=== PATIENT | female | born 1990 | race Two or more races ===

== ENCOUNTER 2016-07-23 23:10 | Emergency (ER) | payer OTHER ==
[2016-07-24 01:21] LABS: SPECIFIC GRAVITY 1.025 (1.001-1.030); URINE BILIRUBIN NEGATIVE (NEGATIVE); URINE BLOOD NEGATIVE (NEGATIVE); URINE GLUCOSE (UA) NEGATIVE (NEGATIVE); URINE LEUKOCYTE ESTERASE NEGATIVE (NEGATIVE); URINE NITRITE NEGATIVE (NEGATIVE); URINE PROTEIN NEGATIVE (NEGATIVE)
[2016-07-24 01:24] LABS: HCG,QUALITATIVE URINE NEGATIVE; URINE APPEARANCE CLEAR; URINE COLOR AMBER; URINE UROBILINOGEN 4 mg/dL (0-1 mg/dl)
[2016-07-24 01:42] LABS: ABSOLUTE NEUTROPHIL COUNT 8.4 K/mm3 (1.8-7.7); BASO % 0.2 % (0.2-1.0); EOS # 0.1 (0.0-0.5); EOS % 0.9 % (0.9-2.9); HEMATOCRIT 38.3 % (37.0-47.0); HEMOGLOBIN 12.7 gm/l (12.0-16.0); IMM NEUT% 0.3 % (0-1); LYMPH # 1.1 (1.0-4.8); LYMPH % 11.2 % (15-45); MEAN CELL VOLUME 88.9 fl (81.0-99.0); MEAN CORPUSCULAR HEMOGLOBIN 29.5 pg (27.0-31.0); MEAN CORPUSCULAR HGB CONC 33.2 g/dl (33.0-37.0); MEAN PLATELET VOLUME 10.6 fl (7.4-10.4); MONO # 0.5 (0.0-0.8); NEUT % 82.4 % (43-75); PLATELET COUNT 259 K/mm3 (130-400); RED CELL DISTRIBUTION WIDTH 11.8 % (11.5-14.5)
[2016-07-24 01:56] LABS: ALB/GLOB RATIO 1.6 (>1.0); ALBUMIN 4.1 gm/dL (3.5-5.7); CALCIUM 9.2 mg/dL (8.6-10.3)
--- NOTE | 2016-07-24 08:38 | US ---
EXAMINATION: Limited gallbladder ultrasound examination was performed. CLINICAL INDICATION: Right upper quadrant pain. COMPARISON: None FINDINGS: Gallbladder: The gallbladder is contracted. And measures 7.4 x 2.3 cm. Cholelithiasis: Extensive cholelithiasis is noted with numerous shadowing calculi. Gallbladder wall thickness: 3.6 millimeters. Pericholecystic fluid: Absent Common bile duct:Not dilated and measures 6 millimeters. Sonographic Cary's sign: None elicited. IMPRESSION: Extensive cholelithiasis with nonspecific gallbladder wall thickening. Findings may reflect subacute or early cholecystitis. There is no evidence of intra or extrahepatic biliary obstruction. Findings were communicated by [facility] to the emergency department at: 2:47 AM 07/24/2016
== END 2016-07-24 03:32 | disposition home or self-care (01) ==
LOC: ED 23:10
DX: K80.20 Calculus of gallbladder without cholecystitis without obstruction (principal)

== ENCOUNTER 2016-09-04 07:30 | Day surgery (SDC) | payer OTHER ==
[~2016-09-04 07:30] MED LIST: CEFAZOLIN SODIUM 2 GRAM PREMIX 100 ML IV ONE; CEFAZOLIN SODIUM 2 GRAM PREMIX 100 ML IV PRN; IV START KIT ONE; LACTATED RINGERS 1,000 ML ONE
[2016-09-04] MEDS ORDERED: BUPIVACAINE 0.5% W/EPI SDV 30 ML VIAL ONE (07:55)
[2016-09-04] MEDS ORDERED: IOPAMIDOL 300 (61%) 30 ML SDV ONE (07:55)
[2016-09-04] MEDS ORDERED: SODIUM CHLORIDE 0.9% 50 ML ONE (07:55)
[2016-09-04] MEDS ORDERED: PROPOFOL 20 ML IV ONE (08:03)
[2016-09-04] MEDS ORDERED: ROCURONIUM BROMIDE 10 MG/ML DOSE IV ONE (08:03)
[2016-09-04] MEDS ORDERED: FENTANYL 100 MCG/2 ML VIAL ONE (08:03)
[2016-09-04] MEDS ORDERED: HYDROMORPHONE HCL 2 MG/ML SYRINGE ONE (08:49)
[2016-09-04] MEDS ORDERED: LACTATED RINGERS 1,000 ML IV SCH (09:00)
[2016-09-04] MEDS ORDERED: MEPERIDINE 25 MG/ML SYRINGE IV PRN (09:00)
[2016-09-04] MEDS ORDERED: NALOXONE HCL 0.4 MG/ML VIAL IV PRN (09:00)
[2016-09-04] MEDS ORDERED: MORPHINE SULFATE 4 MG/ML SYRINGE IV PRN (09:00)
[2016-09-04] MEDS ORDERED: HYDRALAZINE HCL 20 MG/1 ML VIAL IV PRN (09:00)
[2016-09-04] MEDS ORDERED: ATROPINE SULFATE 0.4 MG/1 ML VIAL IV PRN (09:00)
[2016-09-04] MEDS ORDERED: PROMETHAZINE HCL 25 MG/ML VIAL IM PRN ×2 (09:00→15:18)
[2016-09-04] MEDS ORDERED: ONDANSETRON 4 MG/2ML 2 ML VIAL IV PRN ×2 (09:00→10:30)
[2016-09-04] MEDS ORDERED: ONDANSETRON 4 MG/2ML 2 ML VIAL ONE ×2 (09:36→11:08)
[2016-09-04] MEDS ORDERED: KETOROLAC TROMETHAMINE 30 MG/ML 1 ML VIAL ONE (09:36)
[2016-09-04] MEDS ORDERED: FAMOTIDINE 10 MG/ML 2ML VIAL ONE (09:36)
[2016-09-04] MEDS ORDERED: METOCLOPRAMIDE HCL 5 MG/ML 2ML VIAL ONE (09:36)
--- NOTE | 2016-09-04 09:50 | RAD ---
Exam: Intraoperative cholangiogram COMPARISON: Gallbladder ultrasound 07/24/2016 INDICATION: Laparoscopic cholecystectomy. Findings: Fluoroscopy was provided for Dr. Pearl. Radiologist was not present. 30.5 seconds of fluoroscopy time was utilized. 4 static images were submitted for interpretation. These images demonstrate patent common bile duct without intraluminal filling defect to suggest choledocholithiasis. Visualized intrahepatic biliary tree is also normal. Contrast is seen within the duodenum. IMPRESSION: Fluoroscopy was provided for Dr. Pearl for intraoperative cholangiogram. Please see his notes for discussion.
[2016-09-04] MEDS ORDERED: LACTATED RINGERS 1,000 ML ONE ×2 (09:58→14:45)
[2016-09-04] MEDS ORDERED: MORPHINE SULFATE 4 MG/ML SYRINGE ONE (10:09)
--- NOTE | 2016-09-04 10:13 | OP ---
Ann Parsons [id number] DATE: 09/04/2016 PREOPERATIVE DIAGNOSIS: Chronic cholecystitis with cholelithiasis. POSTOPERATIVE DIAGNOSIS: Chronic cholecystitis with cholelithiasis. PROCEDURE: Laparoscopic cholecystectomy with intraoperative cholangiogram. SURGEON: Andrae Pearl M.D. COMBER SETTER: Kylah. ANESTHESIA: Von, general endotracheal. INDICATION: This is a 26-year-old female who has had chronic symptoms of biliary colic who presents now for elective cholecystectomy. DESCRIPTION: With informed consent she was taken to the endoscopy suite where general endotracheal anesthetic was administered. The abdomen was prepped and draped in the usual fashion. Local anesthetic was administered below the umbilicus. Incision was made. Fascia was grasped with Jonathan clamps and divided with curvilinear scissors. Suture of Surgilon replaced all fascial edges and Saenz port was placed. A pneumoperitoneum was created. Local anesthetic was administered in the mid epigastrium and along the right lateral abdominal wall. Incisions were made. The fundus of the gallbladder was grasped and retracted cephalad. The infundibulum was retracted laterally. The cystic duct was identified and dissected free. A clip was placed. The duct was partially transected. There was some sludge and debris within the cystic duct, this was removed. No actual stones were seen in the cystic duct. Cholangiogram catheter was placed, this was clipped and placed and a cholangiogram was obtained showing flow of contrast into the duodenum without filling defect. Initially there was some resistance to flow and possibly some sludge in the distal duct that appeared to dissipate with continued flushing. Contrast was seen refluxing up into the hepatic ducts. The catheter was removed. Two clips were placed on the cystic duct stump and it was completely transected. Next, the cystic artery was then identified and dissected free. Three clips were placed and it was transected leaving two clips on the stump. The gallbladder was then taken off the liver bed using electrocautery. Once it was placed within an Endocatch bag and removed through the infraumbilical port site. The right upper quadrant was irrigated. Hemostasis was ensured. Ports were removed and the pneumoperitoneum was evacuated. The infraumbilical fascial defect was closed with figure of eight suture of 0 Surgilon. The other fascial defects were small. Skin was closed with subcuticular 4-0 Monocryl. Mastisol and Steri-Strips were placed. Sterile dressings were applied. She tolerated the procedure and was taken to the recovery room in stable condition. Note was made that needle, instrument, and lap counts were reported as correct at the time of closure. JOB: [id number] CC: [facility]
[2016-09-04] MEDS ORDERED: KETOROLAC TROMETHAMINE 30 MG/ML 1 ML VIAL IV PRN (10:30)
[2016-09-04] MEDS ORDERED: OXYCODONE HCL 5 MG TABLET PO PRN (10:30)
[2016-09-04] MEDS ORDERED: ACETAMINOPHEN 325 MG TABLET PO PRN (10:30)
[2016-09-04] MEDS ORDERED: MORPHINE SULFATE 2 MG/ML SYRINGE IV PRN (10:30)
[2016-09-04] MEDS ORDERED: MORPHINE SULFATE 2 MG/ML SYRINGE ONE (11:07)
[2016-09-04] MEDS ORDERED: DEXAMETHASONE SOD PHOS 4 MG/1 ML VIAL IV ONE (12:28)
[2016-09-04] MEDS ORDERED: ACETAMINOPHEN 325 MG TABLET ONE (14:30)
[2016-09-04] MEDS ORDERED: PROMETHAZINE HCL 25 MG/ML VIAL ONE (15:14)
[2016-09-04] MEDS ORDERED: OXYCODONE HCL 5 MG TABLET ONE (16:24)
--- NOTE | 2016-09-06 09:50 | SURGPATH ---
[facility] [address] [place] [id number] Patient Name: MARQUIS CARDOSO MR#: [id number] : 1990 Gender: F Specimen #: [id number] Collected: 09/04/2016 Received: 09/05/2016 Reported: 09/06/2016 Submitting Phys: ISSAC ELAM Copy To Phys: [facility] Clinical History / Pre-Operative Diagnosis: CHRONIC CHOLECYSTITIS WITH CHOLELITHIASIS Specimen Source / Surgical Procedure Performed: GALLBLADDER Interpretation: GALLBLADDER, CHOLECYSTECTOMY: - CHRONIC CHOLECYSTITIS AND CHOLELITHIASIS Electronically Signed Out Alessandro Melo M.D. Gross Description: The specimen is received in a formalin filled container labeled with the patient's name and "gallbladder". An intact gallbladder is 8.5 x 2.5 cm. The serosa is smooth and pink. The wall is focally fatty and thickened to 1 cm. The mucosa is pink-kay and velvety. There is no nodule or induration. The lumen contains multiple intact and fragmented, yellow brown calculi up to 1.2 cm. Three high school admissions representative sections are submitted in one cassette including a cross section through the cystic duct surgical margin, a central cross section and a longitudinal section through the fundus. Paulo Marte PLakshmi. Microscopic Description: A slide contains multiple portions of appendix with glands that the extend into the fibromuscular wall and collections of chronic inflammatory cells. 1: [id number] K81.1
== END 2016-09-04 19:23 | disposition home or self-care (01) ==
LOC: SDC 07:30
PROVIDERS: ATTEND Surgery
PROC: 0FT44ZZ Resection of Gallbladder, Percutaneous Endoscopic Approach (ICD-10-PCS; principal; 2016-09-04)
PROC: BF141ZZ Fluoroscopy of Gallbladder, Bile Ducts and Pancreatic Ducts using Low Osmolar Contrast (ICD-10-PCS; 2016-09-04)
DX: K80.10 Calculus of gallbladder with chronic cholecystitis without obstruction (principal)
CPT/HCPCS: 47563; 74300; J1170; J3010; J1100; J2270 ×2; A9270 ×2; J2550; J2765; J1885; J2405 ×2; J7120 ×3; J7030; Q9967; J0690